=== PATIENT | female | born 1955 | race Caucasian/White ===

== ENCOUNTER → 2019-11-16 11:33 | Outpatient (CLI) | payer MEDICARE, SELFPAY ==
--- NOTE | ~2019-11-16 | MM_ITS ---
EXAMINATION: MM screening [facility] BI w kimo HISTORY: Screening mammogram, family history of breast cancer in her mother. TECHNIQUE: Craniocaudal and mediolateral oblique 3-D tomosynthesis images were obtained and synthetic 2-D images were generated. CAD analysis was submitted and interpreted. COMPARISON: 08/11/2013, 07/05/2012 BREAST PARENCHYMAL COMPOSITION: The breasts are almost entirely fatty. FINDINGS: There is no evidence of suspicious mass, calcification, or architectural distortion to sugg est malignancy in either breast. There has been no suspicious interval change. IMPRESSION: 1. No mammographic evidence of malignancy. 2. Recommend routine screening mammography in one year. BI-RADS Category 1: Negative Reviewed, dictated and finalized at location A.
== END ==
DX: Z12.31 Encounter for screening mammogram for malignant neoplasm of breast (principal)
CPT/HCPCS: 77063; 77067

== ENCOUNTER 2021-01-19 15:12 | Outpatient (CLI) | payer MEDICARE, SELFPAY ==
[2021-01-19 16:16] LABS: Rheumatoid Factor < 8.6 IU/ML (<12)
[2021-01-19 16:19] LABS: Erythrocyte Sedimentation Rate 29 mm/hr (0-20)
[2021-01-19 16:21] LABS: Alanine Aminotransferase 17 U/L (4-35); Albumin Level 3.9 g/dL (3.5-5.1); Alkaline Phosphatase 110 U/L (38-126); Anion Gap 6 mmol/L (8-16); Aspartate Amino Transferase 24 U/L (14-36); Bilirubin,Total 1.4 mg/dL (0.2-1.3); Blood Urea Nitrogen 17 mg/dL (7-17); CRP 1.3 mg/dL (<1.0); Calcium 8.7 mg/dL (8.4-10.2); Carbon Dioxide 24 mmol/L (22-30); Chloride 108 mmol/L (98-107); Creatine Kinase 91 U/L (30-135); Estimated Glomerular Filt Rate 55; Glucose 122 mg/dL (65-110); Lactate Dehydrogenase 513 U/L (313-618); Sodium 138 mmol/L (137-145)
[2021-01-23 09:40] LABS: Tissue Transglutaminase IgG Ab 1 U/mL (<6)
[2021-01-24 03:48] LABS: Aldolase 6.1 U/L (<=8.1)
[2021-01-25 13:36] LABS: Tissue Transglutaminase IgA Ab 1 U/mL (<4)
== END 2021-01-19 15:13 | disposition home or self-care (01) ==
LOC: ANHLAB 15:23
PROVIDERS: PCP Family Medicine; Visit Provider Internal Medicine Gastroenterology
DX: R53.83 Other fatigue (principal); M79.10 Myalgia, unspecified site; R53.1 Weakness; D50.9 Iron deficiency anemia, unspecified
CPT/HCPCS: 36415; 80053; 82085; 82550; 83516; 83615; 85652; 86038; 86140; 86430

== ENCOUNTER 2021-03-03 01:24 | Day surgery (SDC) | payer MEDICARE, SELFPAY ==
[2021-02-13 10:30] VITALS: BMI 31.8
[2021-03-03 11:38] VITALS: BMI 30.9
[2021-03-03 11:39] VITALS: BP 161/82; PULSE 77; RESP 18; TEMP 36.7; O2SAT 99
[2021-03-03] MEDS: LACTATED RINGERS 1,000 ML 150 ML IV CONT (11:51)
--- NOTE | 2021-03-03 12:23 | PM.HPGS ---
History of Present Illness History of Present Illness Consent: Risks, benefits, and alternatives have been discussed and questions answered. Patient agrees to proceed with procedure. Chief complaint: LEWIS Narrative: Mone Tate is a 65 year old female she is here for egd and colonoscopy, recent evaluation showed occult blood in stools, she also has longwall foreman anemia. She used to see Dr Machado in [place], she had capsule endoscopy that was negative, also several colonoscopies last one 2016 that showed hemorrhoids, no major findings but she also has chronic diarrhea and Díaz's Review of Systems Constitutional: Constitutional: Denies headache(s) and Denies weakness Eyes: Eyes: Denies blurry vision ENT: Reports Normal hearing present, Denies headache(s) and Denies neck pain Cardiovascular: Cardiovascular: Denies chest pain and Denies dyspnea Respiratory: Respiratory: Denies dyspnea Gastrointestinal: Gastrointestinal: Reports no additional gastrointestinal complaints Genitourinary: Genitourinary: Denies dysuria Musculoskeletal: Musculoskeletal: Denies neck pain Integumentary/Breasts: Skin/Breast: Denies dry skin Neurologic: Reports Normal hearing present, Denies headache(s) and Denies weakness Psychiatric: Psychiatric: Denies anxiety Endocrine: Endocrine: Denies change in body appearance Hematologic/Lymphatic: Hematologic/Lymphatic: Denies easy bleeding Allergic/Immunologic: Allergic/Immunologic: Denies urticaria PMFSH Past Medical History Medical History (Updated 01/19/21 @ 15:12 by Ghanshyam Ponce MD) Díaz esophagus Chronic diarrhea Fatigue Iron deficiency anemia Muscle pain Occult blood in stools Weakness Family History Family History Mother Family history of diabetes mellitus in first degree relative Social History Social History (Updated 01/19/21 @ 14:43 by Leatha Suarez CMA) Smoking status: Never smoker Alcohol intake: current Drinks per week: 2 Substance use: never Living arrangements: alone Spiritual care concerns: No Meds Home Medications and Allergies Home Medications Medication Instructions Recorded Confirmed Type atenolol 25 mg tablet 25 mg PO BID tablet 01/19/21 03/03/21 History dicyclomine 10 mg capsule 10 mg PO BID PRN 01/19/21 03/03/21 History diphenoxylate-atropine 2.5 1 tablet PO QID PRN 01/19/21 03/03/21 History mg-0.025 mg tablet pantoprazole 40 mg tablet,delayed 40 mg PO BID tablet 01/19/21 03/03/21 History release valsartan 80 mg tablet 80 mg PO DAILY 01/19/21 03/03/21 History Allergies Allergy/AdvReac Type Severity Reaction Status Date / Time Iodinated Contrast Media Allergy Mild Difficulty Verified 03/03/21 11:36 Breathing Vital Signs Vital Signs - 24 hr 03/03/21 11:39 Temperature 98.1 F Pulse Rate 77 Respiratory Rate 18 Blood Pressure 161/82 H Pulse Oximetry 99 Exam Const: General: comfortable and no acute distress HENMT: General nose exam: Normal nares present Eyes: General: appearance normal, both eyes and all related structures Neck: Neck: no JVD Resp: Auscultation: clear to auscultation bilaterally Cardio: Rate: regular rate Rhythm: regular rhythm GI: Inspection: non-distended GI Palp: Yes Soft to palpation Skin: General skin exam: normal color Neuro: General: gait normal Speech: normal speech Extrem: General: normal to inspection Psych: Mental Status: mental status grossly normal Assessment and Plan Assessment and plan (1) Chronic diarrhea: Code(s): K52.9 - Noninfective gastroenteritis and colitis, unspecified Status: Acute Assessment and Plan: colonoscopy with random bx (2) Occult blood in stools: Code(s): R19.5 - Other fecal abnormalities Status: Acute Assessment and Plan: scopes (3) 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
--- NOTE | 2021-03-03 12:26 | P.PNAN_ITS ---
Anes - Initial Pre Proc Eval Procedure: Operation Date: 03/03/21 12:15 Proposed Procedures p Esophagogastroduodenoscopy & Colonoscopy - Ghanshyam Ponce MD Date/Time: 03/03/21 12:26 Surgeon: Ghanshyam Ponce MD Pre Op Diagnosis: LEWIS Patient Data Age: 65 Gender: F Height: 1.57 m Weight: 76.7 kg Last Vital Signs Temp 98.1 F 03/03/21 11:39 Pulse 77 03/03/21 11:39 Resp 18 03/03/21 11:39 BP 161/82 H 03/03/21 11:39 Pulse Ox 99 03/03/21 11:39 Allergies Allergy/AdvReac Type Severity Reaction Status Date / Time Iodinated Contrast Media Allergy Mild Difficulty Verified 03/03/21 11:36 Breathing Home Medications Medication Instructions Recorded Confirmed Type atenolol 25 mg tablet 25 mg PO BID tablet 01/19/21 03/03/21 History dicyclomine 10 mg capsule 10 mg PO BID PRN 01/19/21 03/03/21 History diphenoxylate-atropine 2.5 1 tablet PO QID PRN 01/19/21 03/03/21 History mg-0.025 mg tablet pantoprazole 40 mg tablet,delayed 40 mg PO BID tablet 01/19/21 03/03/21 History release valsartan 80 mg tablet 80 mg PO DAILY 01/19/21 03/03/21 History Patient hx anesthesia problems: none Family hx anesthesia problems: none Results Review: All pre-operative results and documents have been reviewed as part of the pre-operative evaluation. [facility] Past Medical History Medical History (Updated 01/19/21 @ 15:12 by Ghanshyam Ponce MD) Díaz esophagus Chronic diarrhea Fatigue Iron deficiency anemia Muscle pain Occult blood in stools Weakness Family History Family History Mother Family history of diabetes mellitus in first degree relative Social History Social History (Updated 01/19/21 @ 14:43 by Leatha Suarez CMA) Smoking status: Never smoker Alcohol intake: current Drinks per week: 2 Substance use: never Living arrangements: alone Spiritual care concerns: No Anes - Eval Final PreProcedure Day of Procedure 03/03/21 12:26 Patient weight: obese Heart: regular rate and rhythm Lungs: clear to auscultation Airway: Mallampati scale class II Neurological: alert and oriented Last oral intake: >/= 8 hours ASA classification: III Emergent: no Anesthetic plan: proceed Anesthesia type and monitoring: general GIVS and standard monitoring Results Review: All pre-operative results and documents have been reviewed as part of the pre-operative evaluation. Informed Consent: The patient's anesthetic plan and its attendant risks and b enefits were discussed with the patient/family/POA. Questions were solicited and answers provided to the satisfaction of the patient/family/POA.
[2021-03-03] MEDS: BENZOCAINE (*SP) 60 ML SPRAY CAN (HURRICAINE) 1 SPRAY MUCOUS MEM (12:29)
--- NOTE | 2021-03-03 12:56 | SUR.OPER ---
EGS START 1230, END 1235 COLONOSCOPY START 1241, END 1253
[2021-03-03 12:57] VITALS: BP 137/73; PULSE 76; RESP 18; O2SAT 94
[2021-03-03 13:07] VITALS: BP 131/70; PULSE 68; RESP 18; O2SAT 95
[2021-03-03 13:13] VITALS: BP 160/84; PULSE 67; RESP 18; O2SAT 99
== END 2021-03-03 13:33 | disposition home or self-care (01) ==
PROVIDERS: PCP Family Medicine; Visit Provider Internal Medicine Gastroenterology
PROC: 0DJ08ZZ Inspection of Upper Intestinal Tract, Via Natural or Artificial Opening Endoscopic (ICD-10-PCS; CPT 43235; principal; 2021-03-03 12:15)
DX: D50.0 Iron deficiency anemia secondary to blood loss (chronic) (principal); R19.7 Diarrhea, unspecified; K44.9 Diaphragmatic hernia without obstruction or gangrene; K20.80 Other esophagitis without bleeding; K52.89 Other specified noninfective gastroenteritis and colitis; K92.1 Melena; K64.4 Residual hemorrhoidal skin tags; K22.70 Barrett's esophagus without dysplasia; R53.83 Other fatigue; E66.9 Obesity, unspecified; Z68.30 Body mass index [BMI] 30.0-30.9, adult
CPT/HCPCS: 43239; 45380; 88305; J2704; J7120

== ENCOUNTER 2021-04-07 10:48 | Outpatient (CLI) | payer MEDICARE, SELFPAY ==
--- NOTE | ~2021-04-07 | MR_ITS ---
EXAMINATION: MR shoulder LT wo con DATE: 04/07/2021 11:32 INDICATION: Chronic left shoulder pain TECHNIQUE: Magnetic resonance imaging (MRI) of the left shoulder was performed without intravenous co ntrast. Sequences included axial PD-weighted FS FSE, coronal oblique PD-weighted FS FSE, coronal obli que T2-weighted FS FSE, sagittal PD-weighted FS FSE, and sagittal T1-weighted SE. COMPARISON: None. FINDINGS: Coracoacromial arch: The acromion undersurface is curved in morphology (type II). The coracoacromial ligament is normal. M inimal acromioclavicular osteoarthritis. Rotator cuff: Mild supraspinatus tendinopathy with small moderate severity intrasubstance tear measuring 7 mm AP an d involving up to one half of the tendon thickness along the superior facet footplate of the supraspi natus tendon. No definitive involvement of the bursal or articular surfaces of the tendon. The infras pinatus and teres minor tendons are normal. Mild subscapularis tendinopathy without discrete tear. No rmal rotator cuff muscle bulk and signal. Biceps tendon, glenoid labrum and glenohumeral cartilage: Mild bicipital tenosynovitis. Mild tendinopathy of the long head biceps tendon with mild partial-thic kness tear of the tendon with small torn portion of the tendon reflective back inferiorly at the caud al aspect of the intertubercular groove. There is also an accessory head of the long head biceps tend on fibers which appear contiguous with the distal biceps antoine sling and the anterior most supraspin atus tendon. Labrum is normal. Glenohumeral cartilage is normal. Fluid: Physiologic amount fluid in the glenohumeral joint space. No loose osteochondral bodies. Very small a mount of fluid in the subacromial/subdeltoid bursa consistent with mild bursitis. Bones: Mild cystic change at the anterosuperior rim of the glenoid extending towards the neck of the coracoi d process. Additional mild degenerative cystic change at the lesser tuberosity and at the anterior ruffin perior facet footplate of the greater tuberosity likely related to subscapularis and supraspinatus te ndon disease respectively. IMPRESSION: 1. Mild supraspinatus tendinopathy and small moderate severity tear at the long the superior facet fo otplate of the supraspinatus tendon. 2. Mild bicipital tenosynovitis with mild tendinopathy and partial-thickness tear of the long head bi ceps tendon. There is also an intact accessory long head of the biceps tendon which appears contiguou s with the biceps poisoning and anterior most supraspinatus tendon. 3. Mild subscapularis tendinopathy without discrete tear. Reviewed, dictated and finalized at location A. SCRATCHER IMPRESSION: 1. Mild supraspinatus tendinopathy and small moderate severity tear at the long the superior facet footplate of the supraspinatus tendon. 2. Mild bicipital tenosynovitis with mild tendinopathy and partial-thickness te ar of the long head biceps tendon. There is also an intact accessory long head of the biceps tendon which appears contiguous with the biceps poisoning and ant erior most supraspinatus tendon. 3. Mild subscapularis tendinopathy without discrete tear.
== END 2021-04-07 10:49 | disposition home or self-care (01) ==
LOC: ANHIMG 10:52
PROVIDERS: PCP Family Medicine; Visit Provider Orthopaedic Surgery
DX: M65.812 Other synovitis and tenosynovitis, left shoulder (principal); M79.10 Myalgia, unspecified site
CPT/HCPCS: 73221

== ENCOUNTER → 2022-10-02 14:47 | Outpatient (CLI) | payer MEDICARE, SELFPAY ==
--- NOTE | ~2022-10-02 | MM_ITS ---
EXAMINATION: MM screening yoselyn BI w kimo HISTORY: Screening mammogram, family history of breast cancer in her mother. TECHNIQUE: Craniocaudal and mediolateral oblique 3-D tomosynthesis images were obtained and synthetic 2-D images were generated. CAD analysis was submitted and interpreted. COMPARISON: 11/16/2019, 08/11/2013, 07/05/2012 BREAST PARENCHYMAL COMPOSITION: The breasts are almost entirely fatty. FINDINGS: No suspicious mass, calcification, or architectural distortion are identified in either ronine ast to suggest malignancy. There has been no suspicious interval change. IMPRESSION: 1. No mammographic evidence of malignancy. 2. Recommend routine screening mammography in one year. BI-RADS Category 1: Negative Reviewed, dictated and finalized at location A.
== END ==
PROVIDERS: PCP Family Medicine; Visit Provider Family Medicine
DX: Z12.31 Encounter for screening mammogram for malignant neoplasm of breast (principal)
CPT/HCPCS: 77063; 77067

== ENCOUNTER 2023-12-17 11:26 | Outpatient (CLI) | payer MEDICARE, SELFPAY ==
--- NOTE | ~2023-12-17 | MM_ITS ---
EXAMINATION: MM screening [facility] BI w kimo HISTORY: Screening TECHNIQUE: Craniocaudal and mediolateral oblique 3-D tomosynthesis images were obtained and synthetic 2-D images were generated. CAD analysis was submitted and interpreted. COMPARISON: Comparison to multiple prior studies sequentially, with oldest reviewed study dated 10/2019. BREAST PARENCHYMAL COMPOSITION: Not Dense: The breasts are almost entirely fatty. FINDINGS: There is no evidence of suspicious mass, calcification, or architectural distortion to sugg est malignancy in either breast. There has been no suspicious interval change. IMPRESSION: 1. No mammographic evidence of malignancy. 2. Recommend routine screening mammography in one year. BI-RADS Category 1: Negative Reviewed, dictated and finalized at location B.
== END 2023-12-17 11:27 ==
PROVIDERS: PCP Family Medicine; Visit Provider Family Medicine
DX: Z12.31 Encounter for screening mammogram for malignant neoplasm of breast (principal)
CPT/HCPCS: 77063; 77067

== ENCOUNTER 2025-01-07 15:26 | Outpatient (CLI) | payer MEDICARE, SELFPAY ==
--- NOTE | ~2025-01-07 | MM_ITS ---
EXAMINATION: MM screening yoselyn BI w kimo HISTORY: Screening TECHNIQUE: Craniocaudal and mediolateral oblique 3-D tomosynthesis images were obtained and synthetic 2-D images were generated. CAD analysis was submitted and interpreted. COMPARISON: Comparison to multiple prior studies sequentially, with oldest reviewed study dated , 07/05/2012 BREAST PARENCHYMAL COMPOSITION: The breasts are almost entirely fatty. FINDINGS: There is no evidence of suspicious mass, calcification, or architectural distortion to suggest malignancy in either breast. IMPRESSION: 1. No mammographic evidence of malignancy. 2. Recommend routine screening mammography in one year. BI-RADS Category 1: Negative Reviewed, dictated and finalized at location B.
--- OUTSIDE RECORDS SUMMARY | 2025-01-07 15:30 | XMS_ITS | Encounter Summary ---
Author Organization [facility] Healthcare Address [address] [place] [address] Care Team Providers Care Senior Network Security Architect Name Role Phone Sultan Darell Purvis MD Unavailable Ana Cristina Hsu MD Primary Care Provi roman Encounter Details Date Type Department Care Team (Late st Contact Info) Description 01/05/2025 Orders Only [facility] Family Medicine [address] [id number] Ana Cristina Hsu MD [address] [address] Stage 3a chronic kidney disease (HCC) (Primary Dx); Primary hypertension; Anemia, unspecified type Social History Tobacco Use Types Packs/Day Years Used Date Smoking Tobacco: Former Cigarettes Smokeless Tobacco: Never Alcohol Use Standard Drinks/Week Comments No 0 (1 standard drink = 0.6 oz pur e alcohol) AUDIT-C Answer Date Recorded Q1: How often do you have a drink containing alc ohol? Monthly or less 09/15/2024 Q2: How many drinks containi ng alcohol do you have on a typical day when you are drinking? 1 or 2 09/15/2024 Q3: How often do you have si x or more drinks on one occasion? Never 09/15/2024 PHQ-2 Answer Date Recorded PHQ-2 Total Score (If total score is 3 or more points, staff should administer the PHQ-9) 0 09/15/2024 PHQ-9 Answer Date Recorded PHQ-9 Total Score 7 05/26/2024 Personal Safety Answer Date Recorded Have you ever been in or are you currently in a harmful physical or emotional relationship or is someone making you feel afraid or unsafe? 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 Gender Identity Female 08/22/2020 9:38 AM CDT Sexual Orientation Straight 08/22/2020 9: 38 AM CDT Occupation Industry Job Start Date Job End Date Retired Not on file Not on file Not on file documented as of this encounter Plan of Treatment Scheduled Orders Name Type Priority Associated Diagnoses Orde r Schedule Comprehensive metabolic panel Lab Routine Primary hypertension Expected: 01/05/2025, Expires: 01/05/2026 CBC with auto differential Lab Routine Stage 3a chronic kidney disease (HCC) Anemia, unspecified type Expected: 01/05/2025, Expires: 01/05/2026 Lipid panel Lab Routine Primary hypertension Expected: 01/05/2025, Expires: 01/05/2026 Thyroid Function [place] Lab Routine Primary hypertension Expected: 01/05/2025, Expires: 01/05/2026 Albumin Creatinine Ratio, Urine Lab Routine Primary hypertension Expected: 01/05/2025, Expires: 01/05/2026 Iron profile w/ IBC Lab Routine Anemia, unspecified type Expected: 01/05/2025, Expires: 01/05/2026 documented as of this encounter Visit Diagnoses Diagnosis Stage 3a chronic kidney disease (HCC)- Primary Primary hypertension Unspecified essential hypertension Anemia, unspecified type documented in this encounter Care Teams Senior Network Security Architect Relationship Specialty Start Date End Date Ana Cristina Hsu MD [address] [place] [address] PCP - General Family Medicine 07/20/24 Sultan Darell Purvis MD [address] [place] [address] Creative Strategist Cardiovascular Disease 01/22/19 documented as of this encounter
--- OUTSIDE RECORDS SUMMARY | 2025-01-07 15:30 | XMS_ITS | Clinical Summary ---
Author Organization [facility] [employer] [facility] Address [address] [place] [address] Care Team Providers Care Hotel Manager Name Role Phone Sultan Darell Purvis MD Unavailable [phone] Ana Cristina Hsu MD Primary Care Provi roman Allergies Active Allergy Reactions Criticality Noted Date Comments Amoxicillin-Pot Clavulanate Unknown 08/28/19 19 Azithromycin Shortness of breath,Rash High Etodolac Stomach upset Low 08/27/2018 Iodinated Contrast Media Oxycodone Shortness of breath,Rash High Medications cholecalciferol, vitamin D3, (VITAMIN D3 ORAL) Take 5,000 Units by mouth Active ipratropium-albut Lacey (DUO-NEB) 0.5-2.5 mg/3 mL nebulizer solutionIndicatio ns:Chronic Obstructive Pulmonary Disease with Bronchospasms Take 3 mL by nebulization 4 (four) times a day as needed for wheezing or shortness of breath 90 mL 11 12/24/19 21 Active dicyclomine (BENTYL) 10 mg capsule Take 1 capsule (10 mg total) by mouth as needed (abdominal pain) 30 capsule 5 07/22/19 22 Active econazole 1 % cream APPLY TO NAILS AT BEDTIME 09/20/19 22 Active multivitamin capsule Take 1 capsule by mouth daily Active polysaccharide iron complex (NU-IRON) 150 mg iron capsule Take 1 capsule (150 mg total) by mouth daily 90 capsule 3 07/25/19 23 Active albuterol HFA (ProAir HFA) 90 mcg/actuation inhaler Inhale 2 puffs every 6 (six) hours as needed for wheezing 8.5 each 2 04/12/20 23 Active fluticasone propionate (Flovent HFA) 110 mcg/actuation inhaler Inhale 1 puff 2 (two) times a day Rinse mouth with water after use. Do not swallow. 12 each 2 04/12/20 23 Active predniSONE (DELTASONE) 50 mg tabletIndications :Mass of right parotid gland 1 tab po 13 hours prior to scan, 1 tab po 7 hours prior to scan, 1 tab po 1 hour prior to scan 3 tablet 06/25/19 24 Active Additional Information Patient not taking.Reported on 09/15/2024 diphenhydrAMINE (BENADRYL) 50 mg capsuleIndication s:Mass of right parotid gland 1 tab po 1 hour prior to scan 1 capsule 06/25/19 24 Active spironolactone (ALDACTONE) 25 mg tablet Take 1 tablet (25 mg total) by mouth daily 09/25/19 24 Active benazepriL (LOTENSIN) 10 mg tablet Take 1 tablet (10 mg total) by mouth daily 02/27/20 24 Active finasteride (PROSCAR) 5 mg tablet Take 2.5 mg by mouth daily 02/27/20 24 Active UNABLE TO FIND Take 1 each by mouth daily Med Name: Viviscal Active pantoprazole DR (PROTONIX) 40 mg EC tablet Take 1 tablet (40 mg total) by mouth 2 (two) times a day 200 tablet 2 04/28/20 24 Active diphenoxylate-atr opine (LOMOTIL) 2.5-0.025 mg per tabletIndications :diarrhea Take 1 tablet by mouth daily as needed for diarrhea 30 tablet 10/03/19 25 Active Active Problems Problem Noted Date Diagnosed Date Paroxysmal atrial fibrillation 09/15/2024 Assessment & Plan (09/15/2024 10:41 AM CDT): Chronic, improved Continue to monitor Class 1 obesity due to exces s calories with serious comorbidity and body mass index (BMI) of 30.0 to 30.9 in adult 09/15/2024 Assessment & Plan (09/15/2024 10:41 AM CDT): Chronic, stable BMI Follow-up includes: education provided. Gastroesophageal reflux disease without esophagi tis 09/15/2024 Assessment & Plan (09/15/2024 10:41 AM CDT): Chronic, uncontrolled Continue current regimen for now Will refer to gi for guidance Orders: Ambulatory referral to Gastroenterology; Future Assessment & Plan (09/15/2024 10:05 AM CDT): Chronic, uncontrolled Will refer to GI for further evaluation Update me after the visit Overweight (BMI 25.0-29.9) 04/15/2024 Assessment & Plan (04/15/2024 9:06 AM CMO & PRESIDENT): BMI Follow-up includes: education provided. Cervical strain 12/18/2022 Assessment & Plan (12/18/2022 8:49 PM CDT): She seems to have a lot of neck pain that radiates a towards the right ear and back of the neck. Also may be radiating towards the right shoulder upper extremity. Think that she probably should see a physical therapist for neck strain. She will talk with her primary care physician about this. Mass of right parotid gland 03/05/2022 Assessment & Plan (07/01/2023 3:12 PM CMO & PRESIDENT): The mass is smaller. It also has asymptomatic. I do not think that it is causing her pain behind her ear. I am recommending a follow-up CT scan of the neck to further evaluate considering she would bilateral masses. She understands would like to go ahead and pursue that. We will call her with results. Assessment & Plan (12/18/2022 8:45 PM CDT): This appears to be unchanged but should be watched. I talked with her about doing a follow-up in about 6 months. I probably would want to repeat her CT scan at that time. I also will see her sooner if needed. Assessment & Plan (06/19/2022 7:12 PM CMO & PRESIDENT): This seems to be about the same. No significant changes. I recommended observation. I think it probably represents reactive lymph nodes. I would like to see her in about 6 months. May repeat a CT scan at that time. I do not think that this is what is causing her right-sided ear pain. Assessment & Plan (03/05/2022 7:15 PM CDT): I suspect this is a small parotid neoplasm or possibly a lymph node. I indicated that it is likely benign. She could consider excision of this lesion. It could be watched also. I do not think that is going to suddenly go away because been present for almost a year now. One advantage to excising and how is that it is very small which presents less risk to the facial nerve. She understands this. We are going to check a CT scan before doing anything. She is agreeable with that. Right ear pain 03/05/2022 Assessment & Plan (07/01/2023 3:12 PM CMO & PRESIDENT): I told her once again and I think that her ear pain is likely due to cervical strain. She may want to talk with her primary care physician about that. Assessment & Plan (12/18/2022 8:46 PM CDT): Again I do not find any evidence of an ear infection or inflammation of either ear. I think her symptoms are probably due to cervical strain. I suggested possibly talking to her primary about referral to a physical therapist. Assessment & Plan (06/19/2022 7:15 PM CMO & PRESIDENT): I do not find any evidence of an ear infection or inflammation. I talked with the patient about possible reasons for ear pain that could be coming from another source. There is some potential for TMJ disorder to cause this. Also some potential for ear pain due to cervical strain or shoulder problems. Considering her history of neck strain and shoulder pain I think it is more likely ear pain is related to that. She does complain of a lot of itching in both ears and I suggested maybe trying some kkhf-[id number] hydrocortisone cream or ointment to both ears which may help with that. She understands. Assessment & Plan (03/05/2022 7:17 PM CDT): I do not find any evidence of an ear infection or inflammation. I talked with the patient about possible reasons for ear pain that could be coming from another source. There is some potential for TMJ disorder to cause this. Also some potential for ear pain due to cervical strain or shoulder problems. She does have some high-frequency sensorineural hearing loss and I reviewed her hearing test with her. I do not think that it requires any type of amplification or other intervention. 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 She can take [id number] nonsteroidals as needed for this. If it continues however I think she should probably see her dentist again. Sensorineural hearing loss (SNHL) of both ears 1 Assessment & Plan (03/05/2022 7:18 PM CDT): I reviewed her hearing test with her. She does have some high-frequency loss. I do not feel She needs amplification however. She understands. Precordial chest pain 12/04/2018 Assessment & Plan (07/07/2019 5:55 PM CMO & PRESIDENT): Echo Doppler 01/21/2019 showed normal ejection fraction. No pericardial effusion and no significant valvular abnormality. Stress echo 01/23/2019 was negative for ischemia. Met level 7. Hypertensive blood pressure response. Inappropriate sinus tachycardia with exercise. Atenolol was added with good response. Assessment & Plan (03/06/2019 1:15 PM CDT): Echo Doppler 01/21/2019 showed normal ejection fraction. No pericardial effusion. No significant valvular abnormality. Stress echo 01/23/2019 was negative for ischemia. Functional class 2 met level 7. Hypertensive blood pressure response. Inappropriate sinus tachycardia with exercise. Atenolol was added 25 mg p.o. Daily, with which she is improved. Morning time jitteriness and I told her to take 12.5 mg atenolol in the evenings also. Assessment & Plan (12/04/2018 12:08 PM CDT): EKG today shows a normal sinus rhythm, normal QRS morphology. Will obtain echo Doppler study to assess the left ventricular systolic function. Stress echo to look for myocardial ischemia. Chronic fatigue 12/04/2018 Assessment & Plan (07/08/2019 1:54 PM CMO & PRESIDENT): Not related to cardiac factors. Probably from stress. Assessment & Plan (12/04/2018 12:08 PM CDT): Recent CBC, electrolytes, chemistries, T4 and TSH were reviewed and look okay. Benign hypertensive heart disease without heart failure 12/04/2018 Assessment & Plan (07/08/2019 1:55 PM CMO & PRESIDENT): Blood pressure 170/96. Markedly elevated. Has not been careful about her salt intake. Strict salt restriction was explained in emphasized. Low-salt diet menu. Take blood pressure frequently at home and maintain a diary. Return 1 month. If most of the blood pressure readings elevated, will add a diuretic. Assessment & Plan (03/06/2019 1:16 PM CDT): Blood pressure 124/70. Salt restriction. Continue the current regimen. Assessment & Plan (12/04/2018 12:10 PM CDT): Blood pressure 148/100. Continue the current regimen. Continue the salt restriction. If the blood pressure remains elevated, will adjust medications. Spinal stenosis of sacral region 11/21/2017 History of lymphoma 11/21/2017 Assessment & Plan (07/07/2019 5:58 PM CMO & PRESIDENT): History of lymphoma around 2016 with a sternal resection followed by chemo and radiation. Chronic diarrhea. Assessment & Plan (03/05/2019 5:48 PM CDT): History of lymphoma around 2016 with a sternal resection followed by chemo and radiation. Chronic diarrhea. Assessment & Plan (12/04/2018 12:07 PM CDT): History of lymphoma around 2016 with an sternal resection followed by chemo and radiation. Chronic diarrhea. History of KS (myocardial infarction) 11/21/2017 Assessment & Plan (07/08/2019 1:53 PM CMO & PRESIDENT): History of an KS after cholecystectomy, around 2014. Subsequent cardiac catheterization at [facility], done 2014 showed normal coronary arteries. It was probably a type 2 KS due to supply demand mismatch. Assessment & Plan (03/05/2019 5:50 PM CDT): History of an KS after carbidopa surgery around 2014. Subsequent cardiac catheterization at [facility] 2014 showed normal coronary arteries. Might have been a type 2 KS. Assessment & Plan (12/04/2018 12:07 PM CDT): History of an KS after gallbladder surgery around 2014. Subsequent cardiac catheterization at [facility] 2014 showed normal coronary arteries. Might have been a type 2 KS. RLQ abdominal pain 11/21/2017 Pelvic pain in female 11/21/2017 Diarrhea due to malabsorption 11/21/2017 Lumbago with sciatica, left side 11/18/2017 Lumbago with sciatica, right side 11/18/2017 CKD (chronic kidney disease) stage 3, GFR 30-59 ml/min 11/14/2017 Assessment & Plan (09/15/2024 10:41 AM CDT): Orders: Iron profile w/ IBC; Future CBC with auto differential; Future Assessment & Plan (04/15/2024 9:40 AM CMO & PRESIDENT): Chronic. Stable. Continue to avoid all NSAIDs and other nephrotoxic medications. I do not think labs are needed at this time, she was only taken 1 dose of magnesium and 2 doses of meloxicam in the last month. Asymptomatic. HTN (hypertension) 11/14/2017 Assessment & Plan (09/15/2024 10:41 AM CDT): Orders: Comprehensive metabolic panel; Future Leg edema 07/24/2016 B12 deficiency anemia 10/24/2015 Assessment & Plan (09/15/2024 10:41 AM CDT): Orders: Vitamin B12; Future Iron profile w/ IBC; Future CBC with auto differential; Future Mixed hyperlipidemia 10/24/2015 Vitamin D deficiency 10/24/2015 Assessment & Plan (09/15/2024 10:41 AM CDT): Lab recheck ordered Try to take vitamin d three times a week Orders: Vitamin D 25 hydroxy; Future Resolved Problems Problem Noted Date Diagnosed Date Resolved Date Type 2 diabetes mellitus 11/21/2017 NHL (non-Hodgkin's lymphoma) 11/14/2017 09/15/2024 Encounters Date Type Department Care Team Description 01/05/2025 Orders Only [facility] [address] [phone] Ana Cristina Hsu MD Stage 3a chronic kidney disease (HCC) (Primary Dx); Primary hypertension; Anemia, unspecified type 12/25/2024 Telephone [facility] Organization [address] [place] [id number] Анна Hernandez MA Chart Review (Med adherence) 12/08/2024 1:45 PM CDT Clinical Support [address] [phone] B12 deficiency (Primary Dx) 11/02/2024 2:45 PM CDT Clinical Support [address] [phone] Anemia due to vitamin B12 deficiency, unspecified B12 deficiency type (Primary Dx) 11/02/[address] [phone] Ana Cristina Hsu MD Additional Services Or Orders from Last 3 Months Immunizations Immunization Administration Dates Next Due Influenza, Quadrivalent, Hig h Dose, Preservative Free, Intrr 02/20/2023,06/13/2022,01/19/2021,01/27 Influenza, Quadrivalent, Spl it, Preservative Free, Intramuscular 02/17/2019,02/14/2018 Influenza, Split 03/02/2008 Influenza, Trivalent, Adjuva nted, Intramuscular 04/01/2024 Influenza, Trivalent, IM (MDV) 02/10/2013 Influenza, Unspecified 02/09/2022(Deferr ed: Patient Refused),02/10/2021,02/14/2018, 013,03/02/2008,04/29/2002 Moderna SARS-CoV-2 Monovalen t Vaccination (12+ YRS) 07/23/2020,06/24/2020 Pneumococcal Conjugate PCV 13 01/19/2021 Pneumococcal Polysaccharide PPV23 08/13/2022 RSV Vaccine, Pref, Recombina nt, Subunit, Adjuvanted, PF, IM (Arexvy) 06/18/2023 Tdap 03/04/2023,04/08/2012 ZOSTER Recombinant 05/10/2020,11/09/2019 Surgical History Surgery Date Site/Laterality Comments TONSILLECTOMY Tonsillectomy BOWEL RESECTION 05/13/1987 - 05/12/1988 removal of lymphoma tumor and small bowel TUMOR REMOVAL CHOLECYSTECTOMY TUBAL LIGATION Age 25 OOPHORECTOMY 08/12/[place] [facility] [place] Dr. Maggie Borja for complex adnexal mass, benign serous cystadenoma Medical History Medical History Date Comments Hx Other Medical Spinal Stenosis ; Comments: [facility] 05/03/2014 - Hx Other Medical 2013 Gallbladder Wesley joe; Comments: [facility] 05/03/2014 - Hx Other Medical 1987 Small Bowel Ba or Surgery (Cancer); Comments: [facility] 05/03/2014 - Hx Other Medical 2007 Ovaries Removed ; Comments: [facility] 05/03/2014 - Hx Other Medical 1985 Tubal Ligation; Comments: [facility] 05/03/2014 - Myocardial infarction (HCC) Myoc ardial infarction; Comments: [facility] 06/02/2014 - Kidney infection Diabetes mellitus (HCC) Spinal stenosis Hypertension Anxiety Bowel trouble Arthritis Cancer (HCC) Lymphoma age 31, tx'd w/ chemo & abdom/pelvic XRTx Menopause ovarian failure With X RT at age 31 Allergic rhinitis GERD (gastroesophageal reflux disease) Ear problems Neck mass Right preauricul ar mass Family History Medical History Relation Name Comments Diabetes Brother Cervical cancer Cousin Heart attack Father Myocardial infa rction; Cause of : Myocardial infarction Heart disease Father Breast cancer Mother Diabetes Mother Heart attack Mother Myocardial infa rction; Ovarian cancer Mother Breast cancer Mother's Sister Ovarian cancer Mother's Sister Heart disease Paternal Grandfather Relation Name Status Comments Brother Cousin Father (Age 67) Mother Mother's Sister Paternal Grandfather Social History Tobacco Use Types Packs/Day Years Used Date Smoking Tobacco: Former Cigarettes Smokeless Tobacco: Never Tobacco Cessation:Counseling Given: Not Answered Alcohol Use Standard Drinks/Week Comments No 0 [...] on file Legal Sex Female 3:31 AM CMO & PRESIDENT Gender Identity Female 08/22/2020 9:38 AM CDT Sexual Orientation Straight 08/22/2020 9: 38 AM CDT Occupation Industry Job Start Date Job End Date Retired Not on file Not on file Not on file Obstetrics History Para Term AB IAB SAB Ectopic Multiple Livin g Live Births 3 3 3 3 3 Date Outcome GA Total Labor Labor/2nd/3rd Weight Sex Type Anes PTL Melinda A1 A5 Name Clin 1974 Term F Vag-S pont N Living 1976 Term M Vag-S pont N Living 1979 Term F Vag-S pont N Living Complications:None Last Filed Vital Signs Vital Sign Reading Time Taken Comments Blood Pressure 128/80 09/15/2024 3:24 PM CDT per pt Pulse 72 05/26/2024 10:21 AM CMO & PRESIDENT Temperature 36 C (96.8 F) 09/15/2024 9:18 AM CDT Respiratory Rate 12 09/15/2024 9:18 AM CDT Oxygen Saturation 99% 09/15/2024 9:18 AM CDT Inhaled Oxygen Concentration - - Weight 75.9 kg (167 lb 6.4 oz) 09/15/2024 9:18 A M CDT Height 157.5 cm (5' 2) 09/15/2024 9:18 AM CDT Body Mass Index 30.62 09/15/2024 9:18 AM CDT Plan of Treatment Health Maintenance Due Date Last Done Comments Hepatitis B Screening 1972 Breast Cancer Screening-Mammogram 12/16/2024 12/17/2023, 10/02/2022, 10/02/2022, Additional history exists Covid-19 Vaccine (2023-06 5 season) 2024 06/23/2024, 06/18/2023, 06/13/2022, Additional history exists Influenza Vaccine (#1) 2025 , 02/20/2023, 06/13/2022, Additional history exists Fall Risk Assessment 05/26/2025 05/26/2024, 05/22/2023, 04/29/2023, Additional history exists Well Visit 65+ 05/26/2025 05/26/2024, 05/13, 05/22/2023, Additional history exists Osteoporosis Screening-Bone Density Scan 06/24/2025 06/24/2023, 06/24/2023 Depression Screening 09/15/2025 09/15/2024, 05/26/2024, 05/26/2024, Additional history exists Colon Cancer Screening-Colonoscopy 03/03/2031 03/03/2021, 01/07/2017 DTaP/Tdap/Td Vaccine (3 - Td or Tdap) 03/04/2033 03/04/2023, 04/08/2012 Hepatitis C Screening Completed 11/09/2019 Zoster Vaccine Completed 05/10/2020, 11/09/2019 Colon Cancer Screening-CT Colonography Discontinued 03/03/2021, 01/07/2017 Colon Cancer Screening-DNA Stool Discontinued 03/03/20 21, 01/07/2017 Colon Cancer Screening-FIT Discontinued 03/03/2021, Colon Cancer Screening-Sigmoidoscopy Discontinued 03/03/2021, 01/07/2017 Pneumococcal vaccine 65+ Completed 08/13/2022, 0901/2021 Procedures Procedure Name Priority Date/Time Associated Diagnosis Comments HM MAMMOGRAPHY Routine 12/17/2023 DEXA AXIAL SKELETON BONE DENSITY 1 OR MORE SITES Schedule Routine, Read Routine (OP Routine) 06/24/2023 3:01 PM CMO & PRESIDENT Osteoporosis screening Menopause COLONOSCOPY Routine 03/03/2021 HEPATITIS C ANTIBODY Routine 11/09/2019 10:51 AM CDT Screening for viral disease from Last 3 Months or Most Recently Relevant to Health Maintenance Results * MAMMOGRAPHY (12/17/2023) Mammography Normal us Historical Provider HEALTH MAINTENANCE Final Result * Dexa Axial Skeleton Bone Density 1 or 2 Site (06/24/2023 3:01 PM CMO & PRESIDENT) Anatomical Region Laterality Modality Body N/A Mammography 06/24/2023 8:32 PM CMO & PRESIDENT Narrative 06/24/2023 9:21 PM CMO & PRESIDENT EXAM DESCRIPTION: DEXA AXIAL SKELETON BONE DENSITY 1 OR MORE SITES REASON FOR STUDY: 67 y/o year old F with given history of: 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 REFERENCE: Bone mineral density: Normal (T-score above or = -1.0) Low bone mass (T-score between -1.0 and -2.5) replaces the previously used term osteopenia Osteoporosis (T-score = or below -2.5) Please see below follow up recommendations. Medical evaluation for secondary causes of low bone mineral density may be appropriate. FRAX is a World Health Organization validated fracture risk assessment tool that calculates a person's 10 year probability of a major osteoporosis related fracture and hip fracture. According to the National Osteoporosis Foundation guidelines, postmenopausal women and men age 50 or older with low bone mass and a 10 year probability of a major osteoporosis related fracture = or greater than 20% or a 10 year probability of a hip fracture = or greater than 3% should be considered for pharmacological treatment for the prevention of osteoporosis. For further information, including treatment recommendations, please refer to the 2019 ISCD Official Positions (http://www.iscd.org) and the NOF's Clinician's Guide to Prevention and Treatment of Osteoporosis (http://www.nof.org/professionals/clinical-guidelines) THIS IS AN ELECTRONICALLY VERIFIED FINAL REPORT 06/24/2023 9:21 PM - Electronically signed by John Goodman M.D. 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 REFERENCE: Bone mineral density: Normal (T-score above or = -1.0) Low bone mass (T-score between -1.0 and -2.5) replaces thepreviously used term osteopenia Osteoporosis (T-score = or below -2.5) Please see below follow up recommendations. Medical evaluation forsecondary causes of low bone mineral density may be appropriate. FRAX is a World Health Organization validated fracture risk assessmenttool that calculates a person's 10 year probability of a major osteoporosisrelated fracture and hip fracture. According to the National OsteoporosisFoundation guidelines, postmenopausal women and men age 50 or older with low bonemass and a 10 year probability of a major osteoporosis related fracture = or greater than 20% or a 10 year probability of a hip fracture = or greaterthan 3% should be considered for pharmacological treatment for the preventionof osteoporosis. For further information, including treatment recommendations, please referto the 2019 ISCD Official Positions (http://www.iscd.org) and the NOF's Clinician's Guide to Prevention and Treatment of Osteoporosis (http://www.nof.org/professionals/clinical-guidelines) THIS IS AN ELECTRONICALLY VERIFIED FINAL REPORT 06/24/2023 9:21 PM - Electronically signed by John Goodman M.D. MF: [id number] Report ID: [id number] Reading Location: [id number] Wai Barker MD IMG DXA PROCEDURES F inal Result * Colonoscopy (03/03/2021) Anatomical Region Laterality Modality Other Historical Provider ENDOSCOPY PROCEDURES Allyson l Result * Hepatitis C antibody (11/09/2019 10:51 AM CDT) Pathologist [facility] Hep C Ab NONREACT NONREACTIVE [facility] Comment: Siemens CentaurXP using ARCADIO (chemiluminescent immunoassay) technology. NONREACTIVE: Antibodies to Hepatitis C not detected. This does not exclude early acute Hepatitis C infection, possibility of exposure to Hepatitis C, antibodies below detection limit, or to lack of antibody reactivity to the antigen used in this assay. EQUIVOCAL: Antibodies to Hepatitis C may or may not be present. Sample to be confirmed by real-time PCR method. REACTIVE: Antibodies to Hepatitis C detected.Sample to be confirmed by real-time PCR method. Blood specimen (specimen) 11/09/2019 10:51 AM CDT 11/09/2019 11:09 AM CDT Narrative Resulting Agency Comment CLI Wai Barker MD LAB MICROBIOLOGY - G ENERAL ORDERABLES Final Result [facility] [address] [place] [address], [facility] [phone] from Last 3 Months or Most Recently Relevant to Health Maintenance Insurance UHC MEDICARE ADVANTAGE UHC MEDICARE ADVANTAGE Care Teams Hotel Manager Relationship Specialty Start Date End Date Ana Cristina Hsu MD [address] [place] [address] PCP - General Family Medicine 07/20/24 Sultan Darell Purvis MD [address] [address] Steel Crane Operator Cardiovascular Disease 01/22/19
--- OUTSIDE RECORDS SUMMARY | 2025-01-07 15:30 | XMS_ITS ---
Author Organization [facility] Address [address] [place] [address] Care Team Providers Care Infant Teacher Name Role Phone Sultan Darell Purvis MD Unavailable [phone] Ana Cristina Hsu MD Primary Care Provi roman Active Problems Problem Noted Date Diagnosed Date [...] 04/15/2024 Assessment & Plan (04/15/2024 9:06 AM ASSOCIATE DRAFTER): BMI Follow-up includes: education provided. Cervical strain [...] 03/05/2022 Assessment & Plan (07/01/2023 3:12 PM ASSOCIATE DRAFTER): The mass is smaller. It also has [...] needed. Assessment & Plan (06/19/2022 7:12 PM ASSOCIATE DRAFTER): This seems to be about the same. [...] 03/05/2022 Assessment & Plan (07/01/2023 3:12 PM ASSOCIATE DRAFTER): I told her once again and I [...] therapist. Assessment & Plan (06/19/2022 7:15 PM ASSOCIATE DRAFTER): I do not find any evidence of [...] ears and I suggested maybe trying some fuaz-eyz-ozapoqe hydrocortisone cream or ointment to both ears [...] her right ear pain. She can take rsyp-vxu-[id number] nonsteroidals as needed for this. If it [...] 12/04/2018 Assessment & Plan (07/07/2019 5:55 PM ASSOCIATE DRAFTER): Echo Doppler 01/21/2019 showed normal ejection fraction. [...] 12/04/2018 Assessment & Plan (07/08/2019 1:54 PM ASSOCIATE DRAFTER): Not related to cardiac factors. Probably from stress. Assessment & Plan (12/04/2018 12:08 PM CDT): Recent CBC, electrolytes, chemistries, T4 and TSH were reviewed and look okay. Benign hypertensive heart disease without heart failure 12/04/2018 Assessment & Plan (07/08/2019 1:55 PM ASSOCIATE DRAFTER): Blood pressure 170/96. Markedly elevated. Has not [...] 11/21/2017 Assessment & Plan (07/07/2019 5:58 PM ASSOCIATE DRAFTER): History of lymphoma around 2015 with a sternal resection followed by chemo and radiation. Chronic diarrhea. Assessment & Plan (03/05/2019 5:48 PM CDT): History of lymphoma around 2016 with a sternal resection followed by chemo and radiation. Chronic diarrhea. Assessment & Plan (12/04/2018 12:07 PM CDT): History of lymphoma around 2016 with an sternal resection followed by chemo and radiation. Chronic diarrhea. History of SC (myocardial infarction) 11/21/2017 Assessment & Plan (07/08/2019 1:53 PM ASSOCIATE DRAFTER): History of an SC after cholecystectomy, around 2014. Subsequent cardiac catheterization at [facility], done 2014 showed normal coronary arteries. It was probably a type 2 SC due to supply demand mismatch. Assessment & Plan (03/05/2019 5:50 PM CDT): History of an SC after carbidopa surgery around 2014. Subsequent cardiac catheterization at [facility] 2014 showed normal coronary arteries. Might have been a type 2 SC. Assessment & Plan (12/04/2018 12:07 PM CDT): History of an SC after gallbladder surgery around 2014. Subsequent cardiac catheterization at [facility] 2015 showed normal coronary arteries. Might have been a type 2 SC. RLQ abdominal pain 11/21/2017 Pelvic pain in female 11/21/2017 Diarrhea due to malabsorption 11/21/2017 Lumbago with sciatica, left side 11/18/2017 Lumbago with sciatica, right side 11/18/2017 CKD (chronic kidney disease) stage 3, GFR 30-59 ml/min 11/14/2017 Assessment & Plan (09/15/2024 10:41 AM CDT): Orders: Iron profile w/ IBC; Future CBC with auto differential; Future Assessment & Plan (04/15/2024 9:40 AM ASSOCIATE DRAFTER): Chronic. Stable. Continue to avoid all NSAIDs [...] week Orders: Vitamin D 25 hydroxy; Future Current Treatment and Therapy Plans No current plan information found. Past Treatment and Therapy Plans No past plan information found. Lifetime Dose Tracking * Chemical Lifetime Dose Automatic Entry Manual Entr y DLP 307 mGycm 307 mGycm 0 mGycm Resolved Problems Problem Noted Date Diagnosed Date Resolved Date Type 2 diabetes mellitus 11/21/2017 NHL (non-Hodgkin's lymphoma) 11/14/2017 09/15/2024
--- OUTSIDE RECORDS SUMMARY | 2025-01-07 15:32 | XMS_ITS | Encounter Summary ---
Author Organization [facility] Address [address] [place] [address] Care Team Providers Care Elementary Classroom Teacher Name Role Phone Wai Barker MD Primary Care Provider [phone] Encounter Details Date Type Department Care Team (Late st Contact Info) Description 09/10/2023 MyChart Message Enc [facility], [address] [id number] María Alvarez PA-C Test results Social History Tobacco Use Types Packs/Day Years Used Date Smoking Tobacco: Former Cigarettes Q uit: 1981 Smokeless Tobacco: Never Alcohol Use Standard Drinks/Week Comments Yes 0 (1 standard drink = 0.6 oz pur e alcohol) Rum 2 x week Comments Unknown Sex and Gender Information Value Date Recorded Sex Assigned at Female 06/10/2024 9:02 AM NUMERICAL TOOL PROGRAMMER Legal Sex Female 11:17 PM CDT Gender Identity Female 08/25/2021 10:02 AM CDT Sexual Orientation Not on file documented as of this encounter Plan of Treatment Upcoming Encounters Date Type Department Care Team (Late st Contact Info) Description 06/07/2025 1:00 PM NUMERICAL TOOL PROGRAMMER Office Visit [facility] [facility], [place] [address] [place] [address] [phone] Liudmila Smith PA [address] [facility] [employer], [address] [place] [address] [phone] documented as of this encounter Visit Diagnoses Not on filedocumented in this encounter Care Teams Elementary Classroom Teacher Relationship Specialty Start Date End Date Wai Barker MD [address] [place] [address] PCP - General 04/29/14 documented as of this encounter
--- OUTSIDE RECORDS SUMMARY | 2025-01-07 15:32 | XMS_ITS | Clinical Summary ---
Author Organization [facility] [employer] Address [address] [place] [address] Care Team Providers Care Technical Adjuster Name Role Phone Unknown, Provider Primary Care Provider Unavaila ble Source Comments [facility] [employer],non-owned Affiliates and Associated Physician Practices is amultiple site organization consisting of ambulatory clinics and hospital sitesin [place], [place], [place] and [place]. This disclosure is being madepursuant to the Care Everywhere program and may not contain all information available regarding this patient. Last updated 18.[facility] [employer] Allergies Active Allergy Reactions Criticality Noted Date Comments Contrast-Iodinated Agents For Ct/Other Angioedema High 2009 Medications * Be aware that medications may not be up to date on this document. Alwaysverify current medications with the patient. vitamin D3 (D3) (25 MCG) 1000 UNIT capsule Take 5 (five) capsules by mouth Active albuterol HFA (Proventil; Ventolin; Proair) 108 (90 Base) MCG/ACT inhaler Inhale 2 (two) puffs by mouth every 6 hours as needed 04/12/2023 Active cyanocobalamin (Vitamin B-12) injection Inject 1,000 (one thousand) mcg into muscle 06/04/2022 Active diphenoxylate-a tropine (Lomotil) 2.5-0.025 MG tablet Take 1 (one) tablet by mouth 05/21/2023 Active fluticasone hfa 110 (Flovent HFA 110) 110 MCG/ACT inhaler Inhale 1 (one) puff by mouth 2 times daily 04/12/2023 Active multivitamins (One A Day) capsule Take 1 (one) capsule by mouth once daily Active pantoprazole EC (Protonix) 40 MG tablet Take 1 (one) tablet by mouth 2 times daily 08/31/2022 Active spironolactone (Aldactone) 25 MG tablet Take 1 (one) tablet by mouth once daily 09/25/2023 Active meloxicam (Mobic) 7.5 MG tablet Take 1 (one) tablet by mouth once daily Active Social History Tobacco Use Types Packs/Day Years Used Date Smoking Tobacco: Never Assessed Comments Unknown Sex and Gender Information Value Date Recorded Sex Assigned at Not on file Legal Sex 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 Gender Identity Not on file Sexual Orientation Not on file Plan of Treatment Health Maintenance Due Date Last Done Comments COLOGUARD (AGES 45-75) - COLON CA SCREENING 1954 CT COLONOGRAPHY - COLON CA SCREENING 1954 FIT - COLON CA SCREENING 1954 FLEX SIG - COLON CA SCREENING 1954 LIPID TESTING 1954 MAMMOGRAM 1954 HEPATITIS C SCREENING 11/28/1972 DTAP/TDAP/TD VACCINES (1 - Tdap) 1973 PNEUMOCOCCAL VACCINE 50+ (1 of 1 - PCV) 2004 ZOSTER VACCINE (1 of 2) 2004 COVID-19 VACCINE (4 - 2023- season) 2024 03/28/2021, 07/23/2020, 06/24/2020 DEPRESSION SCREENING 05/13/2024 MEDICARE AWV CALENDAR YEAR 2024 INFLUENZA VACCINE (#1) 2025 , 02/17/2019, 02/14/2018, Additional history exists Respiratory Syncytial Virus (RSV) Vaccine Pt: or over 60 yrs (1 - 1-dose 75+ series) 2029 COLON MONITORING 03/03/2031 03/03/2021 COLONOSCOPY - COLON CA SCREENING 03/03/2031 03/03/2021 Colorectal Cancer Screening 03/03/2031 BONE DENSITY TESTING Completed 06/24/2023 HEPATITIS B VACCINE Aged Out No longe r eligible based on patient's age to complete this topic HIB VACCINE Aged Out No longer eligi ble based on patient's age to complete this topic HPV VACCINE Aged Out No longer eligi ble based on patient's age to complete this topic MENINGOCOCCAL (Group B) VACCINE SHARED DECISION-MAKING Aged Out No longer eligible based on patient's age to complete this topic MENINGOCOCCAL GROUPS A/C/Y/W VACCINE Aged Out No longer eligible based on patient's age to complete this topic Insurance Care Teams Technical Adjuster Relationship Specialty Start Date End Date Unknown, Provider PCP - General 10/16/23
--- OUTSIDE RECORDS SUMMARY | 2025-01-07 15:32 | XMS_ITS | Clinical Summary ---
Author Organization [facility] Address [address] [place] [address] Care Team Providers Care Human Services Professional Name Role Phone Unavailable Primary Care Provider Unavailabl e Allergies Active Allergy Reactions Criticality Noted Date Comments Iodinated Contrast Media Angioedema High 2009 Medications diphenoxylate-a tropine (LOMOTIL) 2.5-0.025 mg Oral tablet Take 1 Tab by mouth daily. 0 Active dicyclomine (BENTYL) 10 mg Oral capsule Take 10 mg by mouth 4 times daily. 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 Gender Identity Not on file Sexual Orientation Not on file Last Filed Vital Signs Vital Sign Reading Time Taken Comments Blood Pressure 128/76 12/08/2009 8:00 AM CDT Pulse 81 12/08/2009 8:00 AM CDT Temperature 36.9 C (98.5 F) 12/08/2009 8:00 AM CDT Respiratory Rate 18 12/08/2009 8:00 AM CDT Oxygen Saturation 97% 12/08/2009 8:00 AM CDT Inhaled Oxygen Concentration - - Weight 80.5 kg (177 lb 8 oz) 12/05/2009 8:00 AM CDT Height 157.5 cm (5' 2) 12/05/2009 8:00 AM CDT Body Mass Index 32.47 12/05/2009 8:00 AM CDT Plan of Treatment Health Maintenance Due Date Last Done Comments DTAP/TDAP/TD VACCINES (1 - Tdap) 1973 BREAST CANCER SCREENING 1994 COLORECTAL SCREENING 12/04/1999 Colorectal Cancer Screening 12/04/1999 FIT-DNA Q 3 years 12/04/1999 FIT/FOBT Q 1 year 12/04/1999 Flex Sig/CT Colonography Q 5 years 12/04/1999 PNEUMOCOCCAL VACCINE 50+ YEARS (1 of 1 - PCV) 12/04/19 05 ZOSTER VACCINE (1 of 2) 2004 OSTEOPOROSIS SCREENING 12/04/2019 INFLUENZA VACCINE (#1) 2024 RSV VACCINE (60+ or ) (1 - 1-dose 75+ series) 2029 Advance Directives For more information, please contact: [phone] * Full Code (Latest Code Status on File) Date Activated Date Inactivated Comments 2009 10:38 PM 12/08/2009 4:57 PM
--- OUTSIDE RECORDS SUMMARY | 2025-01-07 15:32 | XMS_ITS | Encounter Summary ---
Author Organization [facility] Address 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 Gender Identity Not on file Sexual Orientation Not on file documented as of this encounter Plan of Treatment Not on file documented as of this encounter Procedures Procedure Name Priority Date/Time Associated Diagnosis Comments URINALYSIS WITH REFLEX CULTURE Routine 10/27/2007 1:17 PM CDT CBC WITH DIFFERENTIAL Routine 10/27/2007 1:17 PM CDT URINALYSIS W/REFLEX MICROSCOPIC Routine 10/27/2007 1:17 PM CDT MAGNESIUM LEVEL Routine 10/27/2007 1:17 PM CDT HEMOGLOBIN A1C Routine 10/27/2007 1:17 PM CDT COMPREHENSIVE METABOLIC PANEL Routine 10/27/2007 1:17 PM CDT TYPE AND CROSSMATCH Routine 10/27/2007 1 :13 PM CDT documented in this encounter Results * (ABNORMAL) URINALYSIS (10/27/2007 1:17 PM CDT) [facility] Signature SPECIFIC GRAVITY UA 1.021 1.001 - 1.035 [facility] BLOOD UA Negative Negative [facility] GLUCOSE UA Negative Negative [facility] CA OXALATE CRYSTAL many /HPF [facility] COLOR UA Yellow [facility] NITRITE UA Negative Negative [facility] UROBILINOGEN UA <1 <=1 mg/dL [facility] EPITHELIAL CELLS, URINE 0-2 /HPF [facility] PH UA 5.0 5.0 - 8.0 [facility] KETONES UA Negative Negative [facility] WBC UA 1 0 - 5 /HPF [facility] CLARITY UA Slt. Cloudy(A) Clear [facility] PROTEIN UA Trace(A) Negative [facility] HYALINE CAST 6(H) 0 - 2 /LPF [facility] BILIRUBIN UA Negative Negative [facility] LEUKOCYTE ESTERASE UA Negative Negative [facility] RBC UA 2 0 - 4 /HPF [facility] 10/27/2007 1:17 PM CDT 10/27/2007 3:50 PM CDT us Verito Pozo MD URINE ORDERABLES Final Result [facility] CLIA# [id number] [address] [place], [place] [address] * (ABNORMAL) COMPREHENSIVE METABOLIC PANEL (10/27/2007 1:17 PM CDT) CHLORIDE 106 96 - 108 mmol/L [facility] ALBUMIN 4.1 3.4 - 4.8 g/dL [facility] CREATININE 0.92 0.51 - 0.95 mg/dL [facility] SODIUM 141 135 - 145 mmol/L [facility] ALT 38(H) 0 - 31 U/L [facility] ALKALINE PHOSPHATASE 125(H) 35 - 104 U/L [facility] BILIRUBIN TOTAL 1.0 0.2 - 1.0 mg/dL [facility] CO2 23 22 - 30 mmol/L [facility] TOTAL PROTEIN 7.0 6.3 - 8.6 g/dL [facility] POTASSIUM 4.0 3.5 - 4.9 mmol/L [facility] GLUCOSE 90 65 - 99 mg/dL [facility] AST 27 12 - 32 U/L [facility] BUN 14 6 - 20 mg/dL [facility] CALCIUM 8.5 8.4 - 10.2 mg/dL [facility] GFR, >60 >=60 mL/min/1. 7 sq meter [facility] GFR >60 >=60 mL/min/1. 7 sq meter [facility] Comment: Modification of Diet in Renal Disease (MDRD) study formula. Estimated GFR rate interpretative information for both Americans and non- Americans is available on the [facility] Intranet at: [email or web address] Select: Lab Policies and Procedures Select: Reference Ranges - GFR Blood specimen (specimen) 10/27/2007 1:17 PM CDT 10/27/2007 3:29 PM CDT us Verito Pozo MD CHEMISTRY ORDERABLES Edited [facility] CLIA# [id number] [address] [place] [address] * (ABNORMAL) HEMOGLOBIN A1C (10/27/2007 1:17 PM CDT) GLUCOSE, MEAN BLOOD 165 mg/dL [facility] HEMOGLOBIN A1C 6.8(H) 4.1 - 6.1 % of Hgb [facility] Blood specimen (specimen) 10/27/2007 1:17 PM CDT 10/27/2007 3:29 PM CDT Verito Pozo MD CHEMISTRY ORDERABLES Final Re sult Performing Organization Address [facility] de Phone Number [facility] CLIA# [id number] [address] [place] [address] * MAGNESIUM LEVEL (10/27/2007 1:17 PM CDT) MAGNESIUM 2.0 1.5 - 2.5 mg/dL [facility] Blood specimen (specimen) 10/27/2007 1:17 PM CDT 10/27/2007 3:29 PM CDT Result [facility] Verito Pozo MD CHEMISTRY ORDERABLES Final Re sult Performing Organization Address [facility] de Phone Number [facility] CLIA# [id number] [address] [place] [address] * URINALYSIS WITH REFLEX CULTURE (10/27/2007 1:17 PM CDT) URINE CULTURE ORDER Not indicated [facility] Comment: Criteria for a reflex culture include one or more of the following: Abnormal nitrite, leukocyte esterase, WBCs or RBCs. Lack of qualifying criteria does not exclude the possiblity of a urinary tract infection. Dilute urine, drug interference, etc. may decrease the sensitivity of the criteria analytes. Urine specimen (specimen) 10/27/2007 1:17 PM CDT 10/27/2007 3:50 PM CDT Verito Pozo MD URINE ORDERABLES Final Result Performing Organization Address [facility] Co de Phone Number [facility] CLIA# [id number] [address] [place] [address] * (ABNORMAL) CBC WITH DIFFERENTIAL (10/27/2007 1:17 PM CDT) MCV 87.2 82.0 - 99.0 fL [facility] PLATELETS 265 140 - 350 K/uL [facility] HEMOGLOBIN 12.9 11.8 - 14.8 g/dL [facility] RDW 15.5(H) 11.5 - 14.5 % [facility] WBC 10.0(H) 4.0 - 9.8 K/uL [facility] MCH 27.6 27.2 - 32.6 pg [facility] MPV 12.2 9.3 - 12.4 fL [facility] HEMATOCRIT 40.8 35.5 - 44.0 % [facility] RDW-STDEV 49.0(H) 37.1 - 48.7 fL [facility] RBC 4.68 3.90 - 4.90 M/uL [facility] MCHC 31.6 31.5 - 35.5 % [facility] NEUTROPHILS 57 45 - 70 % [facility] BASOPHILS 1 0 - 2 % [facility] BASOPHILS ABSOLUTE 0.05 0.00 - 0.20 K/uL [facility] MONOCYTES 8 3 - 13 % [facility] MONOCYTE ABSOLUTE 0.82 0.10 - 1.30 K/uL [facility] LYMPHOCYTES 31 16 - 45 % [facility] NEUTROPHIL ABSOLUTE 5.69 1.90 - 7.00 K/uL [facility] EOSINOPHILS 3 0 - 7 % [facility] EOSINOPHIL ABSOLUTE 0.33 0.00 - 0.70 K/uL [facility] LYMPHOCYTE ABSOLUTE 3.06 0.70 - 4.50 K/uL [facility] Blood specimen (specimen) 10/27/2007 1:17 PM CDT 10/27/2007 3:29 PM CDT us Verito Pozo MD HEMATOLOGY ORDERABLES Edited Performing Organization Address [facility] Co de Phone Number INTERFACE SYSTEM Refer to clinic/hospital department [facility] CLIA# [id number] [address] [place] [address] * TYPE AND CROSSMATCH (10/27/2007 1:13 PM CDT) SPECIMEN LIFE 3 days from OR date [facility] HISTORY CHECK No Historical ABO/Rh [facility] ABO/RH TYPE A Positive [facility] ANTIBODY SCREEN Negative [facility] Blood specimen (specimen) 10/27/2007 1:13 PM CDT us Verito Pozo MD BLOOD BANK ORDERABLES Edited Performing Organization Address [facility] Co de Phone Number [facility] CLIA# [id number] [address] [place] [address] documented in this encounter Visit Diagnoses Diagnosis Abdominal or pelvic swelling, mass or lump, unspecified site documented in this encounter
--- OUTSIDE RECORDS SUMMARY | 2025-01-07 15:32 | XMS_ITS | Clinical Summary ---
Author Organization [facility] Address Formerly [facility] [place] [address] Care Team Providers Care Assistant Professor Surgical Technology Name Role Phone Wai Barker MD Primary Care Provider [phone] Allergies Active Allergy Reactions Criticality Noted Date Comments Amoxicillin-Pot Clavulanate Unknown 08/27/2018 Azithromycin Rash,Shortness of Breath High 08/28/2021 Reaction: Rash, trouble breathing, Etodolac GI Upset Low 08/27/2018 Iodinated Contrast Media Angioedema High 2009 Oxycodone Rash,Shortness of Breath High 08/28/2021 Reaction: Rash, Trouble Breathing, Medications ipratropium-albuter ol 0.5-2.5 (3) MG/3ML Solution USE 3 ML VIA NEBULIZER FOUR TIMES DAILY NEEDED FOR WHEEZING OR SHORTNESS OF BREATH 12/25/19 21 Active pantoprazole EC 40 MG tablet Take 1 tablet (40 mg total) by mouth 2 (two) times daily. 03/13/20 21 Active diphenoxylate-atrop ine 2.5-0.025 MG tablet Take 1 tablet by mouth. 12/24/19 21 Active dicyclomine 10 MG capsule 07/27/19 22 Active cyanocobalamin 1000 MCG/ML injection Inject 1 mL (1,000 mcg total) into the muscle. 10/07/19 22 Active iron polysaccharides (NIFEREX) 150 MG capsule Take 1 capsule (150 mg total) by mouth daily. 07/25/19 23 Active albuterol sulfate HFA 108 (90 Base) MCG/ACT inhaler Inhale 2 puffs into the lungs. 04/12/20 23 Active finasteride (PROSCAR) 5 MG tablet Take 0.5 tablets (2.5 mg total) by mouth daily. Active NON FORMULARY visical Active benazepril (LOTENSIN) 10 MG tablet Take 1 tablet (10 mg total) by mouth daily. 90 tablet 1 12/22/19 25 Active spironolactone (ALDACTONE) 25 MG tablet Take 1 tablet (25 mg total) by mouth daily. 90 tablet 1 12/23/19 25 Active spironolactone (ALDACTONE) 25 MG tablet TAKE 1 TABLET(25 MG) BY MOUTH DAILY 90 tablet 3 01/01/20 24 025 Discontin ued(Reord er) benazepril (LOTENSIN) 10 MG tablet Take 1 tablet (10 mg total) by mouth daily. 90 tablet 2 02/27/20 24 025 Discontin ued(Reord er) benazepril (LOTENSIN) 10 MG tablet Take 1 tablet (10 mg total) by mouth daily. 90 tablet 2 12/16/19 25 025 Discontin ued(Reord er) spironolactone (ALDACTONE) 25 MG tablet Take 1 tablet (25 mg total) by mouth daily. 90 tablet 1 12/18/19 25 025 Discontin ued(Reord er) Active Problems Problem Noted Date Diagnosed Date Paroxysmal atrial fibrillation ([facility]/H[facility]/HCC) 03/11/2023 Assessment & Plan (06/01/2024 1:27 PM FORGING MACHINE OPERATOR): Monitor shows no evidence of atrial fibrillation. Assessment & Plan (04/30/2023 2:35 PM FORGING MACHINE OPERATOR): Monitor shows no evidence of atrial fibrillation. Assessment & Plan (03/11/2023 12:51 PM CDT): Will get 30 day monitor to evaluate for atrial fibrillation. Benign hypertensive heart disease without heart failure 12/04/2018 Overview (08/28/2021): Last Assessment & Plan: Blood pressure 170/96. Markedly elevated. Has not been careful about her salt intake. Strict salt restriction was explained in emphasized. Low-salt diet menu. Take blood pressure frequently at home and maintain a diary. Return 1 month. If most of the blood pressure readings elevated, will add a diuretic. Assessment & Plan (06/01/2024 1:33 PM FORGING MACHINE OPERATOR): Continue benazepril and spironolactone daily. Encouraged home BP monitoring. Her blood pressure at home has been well-controlled and most recently at her PCP last week it was well-controlled. Assessment & Plan (04/30/2023 2:35 PM FORGING MACHINE OPERATOR): Continue benazepril//hydrochlorothiazide daily. Encouraged home BP monitoring. Assessment & Plan (03/11/2023 12:50 PM CDT): Stop valsartan and start benazepril//hydrochlorothiazide 10/12.5 mg daily. Encouraged home BP monitoring. Chronic fatigue 12/04/2018 Overview (08/28/2021): Last Assessment & Plan: Not related to cardiac factors. Probably from stress. Precordial chest pain 12/04/2018 Overview (08/28/2021): Last Assessment & Plan: Echo Doppler 01/21/2019 showed normal ejection fraction. No pericardial effusion and no significant valvular abnormality. Stress echo 01/23/2019 was negative for ischemia. Met level 7. Hypertensive blood pressure response. Inappropriate sinus tachycardia with exercise. Atenolol was added with good response. 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 Chronic diarrhea. History of VA (myocardial infarction) 11/21/2017 Overview (08/28/2021): Last Assessment & Plan: History of an VA after cholecystectomy, around 2014. Subsequent cardiac catheterization at [facility], done 2014 showed normal coronary arteries. It was probably a type 2 VA due to supply demand mismatch. CKD (chronic kidney disease) stage 3, GFR 30-59 ml/min 11/14/2017 HTN (hypertension) 11/14/2017 NHL (non-Hodgkin's lymphoma) ([facility]) 0 11/14/2017 Leg edema 07/24/2016 B12 deficiency anemia 10/24/2015 Mixed hyperlipidemia 10/24/2015 Assessment & Plan (06/01/2024 1:27 PM FORGING MACHINE OPERATOR): She had lipid panel in May 2024 and her LDL is less than 100. Continue lifestyle modification. Assessment & Plan (04/30/2023 2:36 PM FORGING MACHINE OPERATOR): She needs a more up to date lipid panel. Vitamin D deficiency 10/24/2015 VA (myocardial infarction) ([facility]) 05/2014 Encounters Date Type Department Care Team Description 12/22/2024 [facility] [address] Liudmila Smith, [place] Refill Request (SPIRONOLACTONE) 12/21/2024 Telephone [employer] [address] [address] Liudmila Smith, [place] Refill Request (BENAZEPRIL) 12/17/2024 Telephone [employer] [address] [address] Liudmila Smith, PA Refill Request (SPIRONOLACTONE) 12/15/2024 Telephone [employer] [address] [address] Liudmila Smith, [place] Refill Request (BENAZEPRIL) from Last 3 Months Immunizations Immunization Administration Dates Next Due Influenza (Generic) 02/10/2021, 3,03/02/2008,2001 Influenza Adult (Generic) 02/17/2019,02/14/2018 MODERNA COVID-19 (12+) MRNA, LNP-S, PF, 100 MCG/ 0.5 ML DOSE 03/28/2021,07/23/2020,06/24/2020 Pneumococcal (Pneumovax 23) 08/13/2022 Pneumococcal (Prevnar 13) 01/19/2021 Shingrix 05/10/2020,11/09/2019 Tdap (Generic) 04/08/2012 Family History Medical History Relation Comments Heart Attack Father Relation Status Comments Brother 1 Alive Brother 2 Alive Father (Age 67) Mother (Age 69) Sister Alive Social History Tobacco Use Types Packs/Day Years Used Date Smoking Tobacco: Former Cigarettes Q uit: 1980 Smokeless Tobacco: Never Tobacco Cessation:Counseling Given: Not Answered Alcohol Use Standard Drinks/Week Comments Yes 0 (1 standard drink = 0.6 oz pur e alcohol) Rum 2 x week Comments Unknown Sex and Gender Information Value Date Recorded Sex Assigned at Female 06/10/2024 9:02 AM FORGING MACHINE OPERATOR Legal Sex Female 11:17 PM CDT Gender Identity Female 08/25/2021 10:02 AM CDT Sexual Orientation Not on file Last Filed Vital Signs Vital Sign Reading Time Taken Comments Blood Pressure 142/92 06/01/2024 1:10 PM FORGING MACHINE OPERATOR Pulse 83 06/01/2024 1:10 PM FORGING MACHINE OPERATOR Temperature - - Respiratory Rate - - Oxygen Saturation 96% 06/01/2024 1:10 PM FORGING MACHINE OPERATOR Inhaled Oxygen Concentration - - Weight 74.8 kg (165 lb) 06/01/2024 1:10 PM FORGING MACHINE OPERATOR Height 157.5 cm (5' 2) 06/01/2024 1:10 PM FORGING MACHINE OPERATOR Body Mass Index 30.18 06/01/2024 1:10 PM FORGING MACHINE OPERATOR Plan of Treatment Upcoming Encounters Date Type Department Care Team (Late st Contact Info) Description 06/07/2025 1:00 PM FORGING MACHINE OPERATOR Office Visit [facility], [place] [address] [place] [address] Liudmila Smith PA 3 [facility], [address] [place] [address] Health Maintenance Due Date Last Done Comments Colorectal Cancer Screening Colonoscopy (10 Years) 1954 Hepatitis C 1972 Mammogram Screening 1994 ASCVD LDL 04/29/2015 04/29/2014 Annual Medicare Wellness Visit 12/04/2019 COVID-19 Vaccine (4 - 2023-2 5 season) 2024 03/28/2021, 07/23/2020, 06/24/2020 DTaP, Tdap and Td Vaccines ( 3 - Td or Tdap) 03/04/2033 03/04/2023, 04/08/2012 Zoster Vaccines Completed 05/10/2020, 11/09/2019 Pneumococcal Vaccine: 50+ Years Completed 08/13/2022, 01/19/2021 RSV Immunization or 60+ Years Completed 06/18/2023 Dexa Scan (General) Completed 06/24/2023, 06/24/2023 Meningococcal B Vaccine Aged Out No l onger eligible based on patient's age to complete this topic Meningococcal Vaccine Aged Out No leroy kayla eligible based on patient's age to complete this topic RSV Immunizations Under 20 Months Aged Out No longer eligible b ased on patient's age to complete this topic Procedures Procedure Name Priority Date/Time Associated Diagnosis Comments LIPID PANEL Routine 04/29/2014 12:00 AM FORGING MACHINE OPERATOR from Last 3 Months or Most Recently Relevant to Health Maintenance Results * LIPID PANEL (04/29/2014 12:00 AM FORGING MACHINE OPERATOR) TRIGLYCERIDES 133 0 - 150 mg/dl MEDINFORMATIX TO EPIC CONVERSION CHOLESTEROL 122 0 - 200 mg/dl MEDINFORMATIX TO EPIC CONVERSION HDL 44 40 - 59 mg/dl MEDINFORMATIX TO EPIC CONVERSION LDL CONVERSION 51 0 - 100 mg/dl MEDINFORMATIX TO EPIC CONVERSION NON HDL CHOLESTEROL 78 0 - 130 mg/dL MEDINFORMATIX TO EPIC CONVERSION 04/29/2014 04/29/2014 us Generic Conversion Md [facility] Final R esult MEDINFORMATIX TO EPIC CONVERSION from Last 3 Months or Most Recently Relevant to Health Maintenance Insurance [facility] Care Teams Assistant Professor Surgical Technology Relationship Specialty Start Date End Date Wai Barker MD [address] [place], [place] [id number] PCP - General 04/29/14
--- OUTSIDE RECORDS SUMMARY | 2025-01-07 15:32 | XMS_ITS | Encounter Summary ---
Author Organization [facility] Care Team Providers Care Hospice Clinical Marketer Name Role Phone Wai Barker MD Primary Care Provid er Carolina Pino MD Primary Care Provider [phone] Meagan Will DPT Unavailable [phone] George Herzog Unavailable Unavailable Wai Barker MD Primary Care Provid er Sultan Darell Purvis MD Unavailable [phone] Ana Cristina Hsu MD Primary Care Provi roman Encounter Details Date Type Department Care Team (Latest Contact Info) Description 01/07/2017 Orders Only [facility] CLINCONV ProviderMulu MD [address] [place] [id number] Social History Tobacco Use Types Packs/Day Years Used Date Smoking Tobacco: Former Alcohol Use Standard Drinks/Week Comments Yes 0 (1 standard drink = 0.6 oz pur e alcohol) Comments Unknown Sex and Gender Information Value Date Recorded Sex Assigned at Not on file Legal Sex Female 3:31 AM MILL LABORER Gender Identity Female 08/22/2020 9:38 AM CDT Sexual Orientation Straight 08/22/2020 9: 38 AM CDT documented as of this encounter Plan of Treatment Not on file documented as of this encounter Procedures Procedure Name Priority Date/Time Associated Diagnosis Comments COLONOSCOPY - SCAN 01/07/2017 12 :00 AM CDT documented in this encounter Results * COLONOSCOPY - SCAN (01/07/2017 12:00 AM CDT) Narrative 01/07/2017 12:00 AM CDT Ordered by an unspecified provider. us Historical Provider Final Res ult documented in this encounter Visit Diagnoses Not on filedocumented in this encounter Care Teams Hospice Clinical Marketer Relationship Specialty Start Date End Date Wai Barker MD [address] [place] [address] PCP - General 06/02/14 09/24/17 Carolina Pino MD [address] [place] [address] PCP - General 09/25/17 09/04/18 Wai Barker MD [address] [place] [address] PCP - General Family Medicine 09/05/18 07/19/24 Ana Cristina Hsu MD [address] [place] [address] PCP - General Family Medicine 07/20/24 Meagan Will DPT [id number] [place] [address] Fellow Physical Therapy 12/13/17 04/04/18 George Herzog 12/13/17 04/04/18 Sultan Darell Purvis MD [address] [place] [address] Lobby Porter Cardiovascular Disease 01/22/19 documented as of this encounter
--- OUTSIDE RECORDS SUMMARY | 2025-01-07 15:32 | XMS_ITS | Encounter Summary ---
Author Organization [facility] Address [address] [facility] [place] [address] Care Team Providers Care Bacon Skin Lifter Name Role Phone Unknown, Provider Primary Care Provider Unavaila ble Encounter Details Date Type Department Care Team (Late st Contact Info) Description 12/24/2019 Lab Requisition [facility] DermPath Lab [address] [facility] [place] [address] Leticia Perez MD [address] [facility] [address] [place] [address] Social History Tobacco Use Types Packs/Day Years Used Date Smoking Tobacco: Never Assessed Comments Unknown Sex and Gender Information Value Date Recorded Sex Assigned at Not on file Legal Sex Female 5:19 PM CARDIAC CATH TECH Gender Identity Not on file Sexual Orientation Not on file documented as of this encounter Plan of Treatment Not on file documented as of this encounter Procedures Procedure Name Priority Date/Time Associated Diagnosis Comments DERMATOPATHOLOGY Routine 12/23/2019 12:0 0 AM CDT documented in this encounter Results * DERMATOPATHOLOGY (12/23/2019 12:00 AM CDT) Case Report Dermatopathology Report Case: [id number] Authorizing Provider: Leticia Perez MD Collected: 12/23/2019 12:00 AM Ordering Location: [facility] Care DermPath Lab Received: 12/24/2019 09:17 AM Pathologist: Renee Rodriguez MD Specimen: Skin, left chest 0 1:03 PM CDT DERMATOPATHOLOGY LABORATORY Final Diagnosis Specimen A. SKIN, left chest: LICHEN PLANUS-LIKE KERATOSIS (BENIGN LICHENOID KERATOSIS) (L82.1) 0 1:03 PM CDT DERMATOPATHOLOGY LABORATORY at 1303 CDT Clinical History R/O BCC, irritated 0 1:03 PM CDT DERMATOPATHOLOGY LABORATORY Gross Description Specimen A: Received is one formalin filled container labeled with the patient's name and designated left chest. The specimen consists of a shave biopsy measuring 10x5x1 mm. Jar 0. 0 1:03 PM CDT DERMATOPATHOLOGY LABORATORY Microscopic Description Specimen A. SKIN, left chest: The epidermis is mildly acanthotic. There is a lichenoid infiltrate with vacuolar changes of basilar keratinocytes and scattered necrotic keratinocytes. 0 1:03 PM CDT DERMATOPATHOLOGY LABORATORY Disclaimer An external and internal positive and negative controls are appropriate for the histochemical, immunohistochemical and immunofluorescence stain(s) in this case (if any), except where stated explicitly. The performance characteristics of the stain(s) cited in this report were developed and its performance characteristic determined by the Dermatopathology Laboratory at [facility], directed by Dr. Maggie Lynch. These tests need not be, and therefore are not, approved by the [place] Food and Drug Administration. The tests are used for clinical purposes. Billing Codes Specimen Charges Stain Charges 76964 1 0 1:03 PM CDT DERMATOPATHOLOGY LABORATORY Embedded Images 0 1:03 PM CDT DERMATOPATHOLOGY LABORATORY Pathology/Cytolog y TISSUE SPECIMEN FROM SKIN / Unknown 12/23/2019 12/24/2019 9:17 AM CDT Leticia Perez MD LAB - PATHOLOGY/CYTOLOGY OR DERABLES Final Result DERMATOPATHOLOGY LABORATORY [facility] - Department of Dermatology [employer] [place] [address], [facility] [phone] documented in this encounter Visit Diagnoses Not on filedocumented in this encounter Care Teams Bacon Skin Lifter Relationship Specialty Start Date End Date Unknown, Provider PCP - General 10/16/23 documented as of this encounter
--- OUTSIDE RECORDS SUMMARY | 2025-01-07 15:32 | XMS_ITS | Encounter Summary ---
Author Organization [facility] Address [address] [place] [address] Care Team Providers Care Wood Flour Miller Name Role Phone Wai Barker MD Primary Care Provider [phone] Encounter Details Date Type Department Care Team (Late Contact Info) Description 11/19/2023 MyChart Message Enc [facility], [address] [phone] María Alvarez PA-C Blood testing Social History Tobacco Use Types Packs/Day Years Used Date Smoking Tobacco: Former Cigarettes Q uit: 1981 Smokeless Tobacco: Never Alcohol Use Standard Drinks/Week Comments Yes 0 (1 standard drink = 0.6 oz pur e alcohol) Rum 2 x week Comments Unknown Sex and Gender Information Value Date Recorded Sex Assigned at Female 06/10/2024 9:02 AM OIL REFINERY PROCESS TECHNICIAN Legal Sex Female 11:17 PM CDT Gender Identity Female 08/25/2021 10:02 AM CDT Sexual Orientation Not on file documented as of this encounter Plan of Treatment Upcoming Encounters Date Type Department Care Team (Late st Contact Info) Description 06/07/2025 1:00 PM OIL REFINERY PROCESS TECHNICIAN Office Visit [facility] [facility], [place] [address] [place] [phone] Liudmila Smith PA 3 [facility], [address] [place] [phone] documented as of this encounter Visit Diagnoses Not on filedocumented in this encounter Care Teams Wood Flour Miller Relationship Specialty Start Date End Date Wai Barker MD [address] [place] [address] PCP - General 04/29/14 documented as of this encounter
--- OUTSIDE RECORDS SUMMARY | 2025-01-07 15:32 | XMS_ITS | Clinical Summary ---
Author Organization [facility] Address [address] [place] [address] Care Team Providers Care Clinical Outcomes Manager Name Role Phone Unavailable Primary Care Provider Unavailabl e Social History Tobacco Use Types Packs/Day Years Used Date Smoking Tobacco: Never Assessed Comments Unknown Sex and Gender Information Value Date Recorded Sex Assigned at Not on file Legal Sex Female 2:55 PM FISHING ACCESSORIES MAKER Gender Identity Not on file Sexual Orientation Not on file Plan of Treatment Health Maintenance Due Date Last Done Comments Hepatitis C Virus (HCV) Screening 1955 TdaP Immunization 1955 Cologuard 12/04/1999 Colonoscopy 12/04/1999 Colorectal Cancer Screening 12/04/1999 Immunochemical Fecal Occult Blood 12/04/1999 Pneumococcal Immunization (50+ years) (1 of 1 - PCV) 2004 Zoster Immunization (2 of 2) 01/04/2020 11/09/2019 SARS-COV-2 Immunization (1 - 2023- season) 2024 Influenza Immunization (#1) 01/11/202501/11, 02/17/2019, 02/14/2018, Additional history exists Respiratory Syncytial Virus (RSV) Immunization (Adult) (1 - 1-dose 75+ series) 2029 Hepatitis B Immunization Aged Out No longer eligible based on patient's age to complete this topic Human Papillomavirus (HPV) Immunization Aged Out No longer eligible based on patient's age to complete this topic Meningococcal Immunization (ACWY) Aged Out No longer eligible based on patient's age to complete this topic Rotavirus Immunization Aged Out No lo nger eligible based on patient's age to complete this topic Insurance [employer] on file
== END 2025-01-07 15:27 | disposition home or self-care (01) ==
LOC: ANHFOHIMG 15:28
PROVIDERS: PCP Family Medicine; Visit Provider Family Medicine
DX: Z12.31 Encounter for screening mammogram for malignant neoplasm of breast (principal)
CPT/HCPCS: 77063; 77067